=== PATIENT | female | born 1975 | race Caucasian/White ===

== ENCOUNTER 2016-08-05 02:01 | Emergency (ER) | payer SELFPAY ==
[2016-08-05] MEDS ORDERED: SUCRALFATE 1 GM TABLET (FP) PO ONE (02:18)
[2016-08-05] MEDS ORDERED: PANTOPRAZOLE SODIUM 40 MG in SODIUM CHLORIDE 100 ML IVPB ONE (02:18)
[2016-08-05] MEDS ORDERED: FAMOTIDINE 20 MG/50 ML IVPB 50 ML IVPB ONE (02:18)
[2016-08-05] MEDS ORDERED: MAG HYDROX/AL HYDROX/SIMETH 30 ML UNIT-DOSE CUP PO ONE (02:18)
[2016-08-05] MEDS ORDERED: ACETAMINOPHEN 325 MG TABLET (FP) PO ONE (02:18)
[2016-08-05] MEDS ORDERED: PANTOPRAZOLE SODIUM 100 ML IVPB ONE (02:23)
[2016-08-05 02:28] VITALS: BP 106/77; PULSE 80; TEMP 98.6; BMI 24.0
[2016-08-05 02:42] LABS: BASOPHIL 0.7 % (0-2.0); EOSINOPHIL 2.5 % (0-4.5); MCH 25.1 pg (25.7-33.7); MCHC 32.2 g/dl (32.0-36.0); MEAN CELL VOLUME 77.9 fl (80-96); MEAN PLT VOLUME 8.6 fl (7.5-11.1); NEUTROPHILS 45.7 % (42.8-82.8); PLATELET COUNT 275 K/MM3 (134-434); RDW 16.1 % (11.6-15.6); WHITE BLOOD COUNT 10.1 K/mm3 (4.0-10.0)
--- NOTE | 2016-08-05 02:47 | PDOC ---
History of Present Illness - General History Source: Patient Exam Limitations: No Limitations - History of Present Illness Initial Comments: 08/05/16 04:27 The patient is a 40 year old male with no significant past medical history, who presents to the ER with chest pain for one hour. Patient states she was in her usual state of health last night. She states that she woke up later tonight with nonradiating chest pain that she describes as pressure. She localizes the abdominal pain to the lower sternal region. Patient states the initial onset of pain was at 10/10 in severity, and currently is 9/10. She reports she had accompanied shortness of breath for a short period of time. Patient says she ate chicken and rice last night. She states the meal was moderately spicy. Denies family history of cardiac history Denies exercises Denies fever, chills, cough Denies nausea, vomiting, diarrhea Denies diaphoresis <Darby Lal - Last Filed: 08/05/16 04:27> - General History Source: Patient Exam Limitations: No Limitations <Bert Zuniga - Last Filed: 08/05/16 05:12> - General Stated Complaint: ABD PAIN Time Seen by Provider: 08/05/16 02:09 Past History <Darby Lal - Last Filed: 08/05/16 04:27> - Psycho/Social/Smoking Cessation Hx Suicidal Ideation: No Smoking History: Never smoked <Bert Zuniga - Last Filed: 08/05/16 05:12> - Past Medical History Allergies/Adverse Reactions: Allergies Allergy/AdvReac Type Severity Reaction Status Date / Time No Known Allergies Allergy Verified 08/05/16 02:28 Home Medications: Ambulatory Orders Famotidine [Pepcid] 20 mg PO BID PRN #20 tablet 08/05/16 Mag Hydrox/Al Hydrox/Simeth [Mylanta Suspension -] 30 ml PO Q6H PRN #1 bottle Review of Systems - Review of Systems Able to Perform ROS?: Yes Comments:: 08/05/16 04:27 GENERAL/CONSTITUTIONAL: No fever or chills. No weakness. HEAD, EYES, EARS, NOSE AND THROAT: No change in vision. No ear pain or discharge. No sore throat. CARDIOVASCULAR: (+) chest pain and (+) shortness of breath RESPIRATORY: No cough, wheezing, or hemoptysis. GASTROINTESTINAL: No nausea, vomiting, diarrhea or constipation. GENITOURINARY: No dysuria, frequency, or change in urination. MUSCULOSKELETAL: No joint or muscle swelling or pain. No neck or back pain. SKIN: No rash NEUROLOGIC: No headache, vertigo, loss of consciousness, or change in strength/ sensation. ENDOCRINE: No increased thirst. No abnormal weight change. HEMATOLOGIC/LYMPHATIC: No anemia, easy bleeding, or history of blood clots. ALLERGIC/IMMUNOLOGIC: No hives or skin allergy. <ArdelorisDarby - Last Filed: 08/05/16 04:27> *Physical Exam - Vital Signs Last Vital Signs Temp Pulse Resp BP Pulse Ox 98.6 F 80 16 106/77 98 08/05/16 02:27 08/05/16 02:27 08/05/16 02:27 08/05/16 02:27 08/05/16 02:27 - Physical Exam Comments: 08/05/16 04:27 GENERAL: Awake, alert, and fully oriented, in no acute distress HEAD: No signs of trauma EYES: PERRLA, EOMI, sclera anicteric, conjunctiva clear ENT: Auricles normal inspection, hearing grossly normal, nares patent, oropharynx clear without exudates. Moist mucosa NECK: Normal ROM, supple, no lymphadenopathy, JVD, or masses LUNGS: Breath sounds equal, clear to auscultation bilaterally. No wheezes, and no crackles HEART: Regular rate and rhythm, normal S1 and S2, no murmurs, rubs or gallops ABDOMEN: Soft, nontender, normoactive bowel sounds. No guarding, no rebound. No masses EXTREMITIES: Normal range of motion, no edema. No clubbing or cyanosis. No cords, erythema, or tenderness NEUROLOGICAL: Cranial nerves II through XII grossly intact. Normal speech, normal gait SKIN: Warm, Dry, normal turgor, no rashes or lesions noted. <ArdelorisDarby - Last Filed: 08/05/16 04:27> - Vital Signs Last Vital Signs Temp Pulse Resp BP Pulse Ox 98.6 F 80 16 106/77 98 08/05/16 02:27 08/05/16 02:27 08/05/16 02:27 08/05/16 02:27 08/05/16 02:27 <Bert Zuniga - Last Filed: 08/05/16 05:12> Heart Score/ECG Review #1 ECG reviewed & interpreted by me at: 03:20 08/05/16 03:19 NSR 67, no std/thom, normal axis, normal intervals, QTC 418 msec. normal ECG <Bert Zuniga - Last Filed: 08/05/16 05:12> ED Treatment Course - LABORATORY CBC & Chemistry Diagram: 08/05/16 02:30 08/05/16 02:30 - ADDITIONAL ORDERS Additional order review: Laboratory Results 08/05/16 08/05/16 08/05/16 02:30 02:30 02:30 INR PTT (Actin FS) D-Dimer Sodium 140 Potassium 3.6 Chloride 106 Carbon Dioxide 27 Anion Gap 7 L BUN 20 H Creatinine 0.9 Creat Clearance w eGFR > 60 Random Glucose 101 Calcium 8.5 Total Bilirubin 0.2 AST 32 ALT 28 Alkaline Phosphatase 54 Creatine Kinase 241 H CK-MB (CK-2) 2.174 Troponin I < 0.02 Total Protein 7.3 Albumin 3.8 Lipase 152 Serum , Qual Negative 08/05/16 02:30 INR 1.15 H PTT (Actin FS) 28.4 D-Dimer 335 H Sodium Potassium Chloride Carbon Dioxide Anion Gap BUN Creatinine Creat Clearance w eGFR Random Glucose Calcium Total Bilirubin AST ALT Alkaline Phosphatase Creatine Kinase CK-MB (CK-2) Troponin I Total Protein Albumin Lipase Serum , Qual 08/05/16 02:30 RBC 4.03 MCV 77.9 L MCHC 32.2 RDW 16.1 H MPV 8.6 Neutrophils % 45.7 Lymphocytes % 44.2 H Monocytes % 6.9 Eosinophils % 2.5 Basophils % 0.7 - Medications Given in the ED: ED Medications Discontinued Medications Generic Name Dose Route Start Last Admin Trade Name Freq PRN Reason Stop Dose Admin Acetaminophen 650 mg 08/05/16 02:18 08/05/16 02:35 Tylenol - PO 08/05/16 02:19 650 mg ONCE ONE Administration Al Hydroxide/Mg Hydroxide 30 ml 08/05/16 02:18 08/05/16 02:35 Mylanta Oral Suspension - PO 08/05/16 02:19 30 ml ONCE ONE Administration Pantoprazole Sodium 40 mg/ 100 mls @ 200 mls/hr 08/05/16 02:18 08/05/16 03:10 Sodium Chloride IVPB 08/05/16 02:47 200 mls/hr ONCE ONE Administration Famotidine/Sodium Chloride 50 mls @ 100 mls/hr 08/05/16 02:18 08/05/16 02:35 Pepcid 20 Mg Premixed Ivpb - IVPB 08/05/16 02:47 100 mls/hr ONCE ONE Administration Sucralfate 1 gm 08/05/16 02:18 08/05/16 02:35 Carafate - PO 08/05/16 02:19 1 gm ONCE ONE Administration <BetyValentino puentesa - Last Filed: 08/05/16 04:27> - LABORATORY CBC & Chemistry Diagram: 08/05/16 02:30 08/05/16 02:30 - RADIOLOGY Radiology Studies Ordered: Category Date Time Status CHEST X-RAY PORTABLE* [RAD] Stat Radiology 08/05/16 02:18 Ordered <Bert Zuniga - Last Filed: 08/05/16 05:12> Medical Decision Making - Medical Decision Making 08/05/16 02:32 A portion of this note was documented by scribe services under my direction. I have reviewed the details of the note, within reason, and agree with the documentation with the following case summary and management plan written by me. Patient treated in the ED. Nursing notes are reviewed and incorporated into the medical decision-making. Vital signs reviewed. Peripheral IV access obtained by the nurse, laboratory studies are drawn and sent, reviewed and interpreted by myself. Vital Signs Temp Pulse Resp BP Pulse Ox 98.6 F 80 16 106/77 98 08/05/16 02:27 08/05/16 02:27 08/05/16 02:27 08/05/16 02:27 08/05/16 02:27 40-year-old female with no medical history presents with epigastric, chest tightness since 1 hour prior to arrival. Patient ate some usual beans and rice and some spicy meats that is typical of her foods. Went to bed and woke up with this pain. States that movement and breathing worsens the pain. Denies shortness of breath. Denies nausea or vomiting or recent illnesses. Denies exertional component. Patient has no family history of cardiac disease nor does she smoke. We'll send a d-dimer and a troponin but we'll treat as GERD. Chest x-ray labs and reassess 08/05/16 05:08 CBC, BMP 08/05/16 02:30 08/05/16 02:30 CMP Sodium 140 mmol/L (136-145) 08/05/16 02:30 Potassium 3.6 mmol/L (3.5-5.1) 08/05/16 02:30 Chloride 106 mmol/L (98-107) 08/05/16 02:30 Carbon Dioxide 27 mmol/L (21-32) 08/05/16 02:30 Anion Gap 7 (8-16) L 08/05/16 02:30 BUN 20 mg/dL (7-18) H 08/05/16 02:30 Creatinine 0.9 mg/dL (0.55-1.02) 08/05/16 02:30 Creat Clearance w eGFR > 60 (>60) 08/05/16 02:30 Random Glucose 101 mg/dL (74-106) 08/05/16 02:30 Calcium 8.5 mg/dL (8.5-10.1) 08/05/16 02:30 Total Bilirubin 0.2 mg/dL (0.2-1.0) 08/05/16 02:30 AST 32 U/L (15-37) 08/05/16 02:30 ALT 28 U/L (12-78) 08/05/16 02:30 Alkaline Phosphatase 54 U/L (45-117) 08/05/16 02:30 Creatine Kinase 241 IU/L (26-192) H 08/05/16 02:30 CK-MB (CK-2) 2.174 ng/ml (0.5-3.6) 08/05/16 02:30 Troponin I < 0.02 ng/ml (0.00-0.05) 08/05/16 02:30 Total Protein 7.3 g/dl (6.4-8.2) 08/05/16 02:30 Albumin 3.8 g/dl (3.4-5.0) 08/05/16 02:30 Lipase 152 U/L (73-393) 08/05/16 02:30 Serum , Qual Negative 08/05/16 02:30 Chest xray reviewed. d-dimer elevated. CTA reviewed. No PE After receiving GERD medications, the patient reports complete relief from the GERD medications. I suspect that this is the case and not cardiac. Pt would like to go home. <Bert Zuniga - Last Filed: 08/05/16 05:12> *DC/Admit/Observation/Transfer - Attestations Scribe Attestion: 08/05/16 04:27 Documentation prepared by Darby Lal, acting as medical parasitologist for Bert Zuniga MD. <Darby Lal - Last Filed: 08/05/16 04:27> - Discharge Dispostion Admit: No <Bert Zuniga - Last Filed: 08/05/16 05:12> Diagnosis at time of Disposition: GERD (gastroesophageal reflux disease) Qualifiers: Esophagitis presence: without esophagitis Qualified Code(s): K21.9 - Gastro- esophageal reflux disease without esophagitis - Discharge Dispostion Disposition: HOME Condition at time of disposition: Improved - Prescriptions Prescriptions: Mag Hydrox/Al Hydrox/Simeth [Mylanta Suspension -] 30 ml PO Q6H PRN #1 bottle PRN Reason: Abdominal Pain Famotidine [Pepcid] 20 mg PO BID PRN #20 tablet PRN Reason: Abdominal Pain - Patient Instructions Printed Discharge Instructions: DI for Gastroesophageal Reflux Disease (GERD) Additional Instructions: Take 20 mg pepcid every 12 hours as needed for acid reflux. Take 30 cc of maalox every 6 hours as needed for abdominal pain. [place] diet. Please drink plenty of fluids and rest. Follow up with your doctor. Print Language: OMANI - Post Discharge Activity Work/School Note: Back to Work
[2016-08-05 02:56] LABS: INR 1.15 (0.82-1.09); PROTHROMBIN TIME (PATIENT) 12.7 SEC (9.98-11.88)
[2016-08-05 02:59] LABS: ACTIVATED PTT 28.4 SECONDS (26.9-34.4)
[2016-08-05 03:07] LABS: ALBUMIN 3.8 g/dl (3.4-5.0); CALCIUM 8.5 mg/dL (8.5-10.1); CO2 27 mmol/L (21-32); COCKROFT - GAULT 83.2915; CREATININE 0.9 mg/dL (0.55-1.02); GLUCOSE,RANDOM 101 mg/dL (74-106); SGPT/ALT 28 U/L (12-78); TOT PROT 7.3 g/dl (6.4-8.2)
[2016-08-05 03:28] LABS: ALK PHOS 54 U/L (45-117); BILIRUBIN,TOTAL 0.2 mg/dL (0.2-1.0); SGOT/AST 32 U/L (15-37)
[2016-08-05 03:45] LABS: ANION GAP 7 (8-16)
[2016-08-05 04:01] LABS: TROPONIN I < 0.02 ng/ml (0.00-0.05)
--- NOTE | 2016-08-05 11:02 | EKG ---
Test Reason : Blood Pressure : / mmHG Vent. Rate : 067 BPM Atrial Rate : 067 BPM P-R Int : 170 ms QRS Dur : 076 ms QT Int : 396 ms P-R-T Axes : 024 046 027 degrees QTc Int : 418 ms NORMAL SINUS RHYTHM NORMAL ECG NO PREVIOUS ECGS AVAILABLE Confirmed by TYRONE BAXTER, JAGDISH ([id number]) on 08/05/2016 11:02:22 AM Referred By: Confirmed By:JAGDISH HANSEN MD
== END 2016-08-05 06:18 | disposition home or self-care (01) ==
LOC: JER 02:01
PROC: 3E033GC Introduction of Other Therapeutic Substance into Peripheral Vein, Percutaneous Approach (ICD-10-PCS; principal; 2016-08-05)
PROC: 3E033GC Introduction of Other Therapeutic Substance into Peripheral Vein, Percutaneous Approach (ICD-10-PCS; 2016-08-05)
DX: K21.9 Gastro-esophageal reflux disease without esophagitis (principal)
CPT/HCPCS: 36415; 71010-TC; 71275-TC; 80053; 82550; 82553; 83690; 84484; 84703; 85025; 85379; 85610; 85730; 93005; 93010; 99282-25